=== PATIENT | female | born 1975 | race Caucasian/White ===

== ENCOUNTER → 2019-03-17 | Outpatient (CLI) | payer OTHER | LOC: MC.RAD 11:43 | DX: Z12.31 Encounter for screening mammogram for malignant neoplasm of breast (principal); Z90.710 Acquired absence of both cervix and uterus; Z90.722 Acquired absence of ovaries, bilateral; Z78.0 Asymptomatic menopausal state ==

== ENCOUNTER 2023-11-04 09:37 | Outpatient (RCR) | payer OTHER | END 2023-12-01 | disposition home or self-care (01) | LOC: WSPT | DX: M25.562 Pain in left knee (principal); Z96.652 Presence of left artificial knee joint ==